=== PATIENT | male | born 1985 | race Two or more races ===

== ENCOUNTER 2017-07-20 16:30 | Emergency (ER) | payer SELFPAY ==
[2017-07-20 17:02] VITALS: BP 137/82
--- NOTE | 2017-07-20 17:24 | UC ---
Throat Pain/Nasal Jose R HPI - HPI Summary HPI Summary: Pt presents with sore throat for 3 days. He tells me that 3 days ago he developed a right sided sore throat and felt mildly feverish. Since that time his pain has been increasing and now he is having difficulty swallowing. He is able to eat soft foods and drink liquids, but with moderate to severe pain. He is able to open his mouth, but this is decreased from his usual ROM. He says he is UTD on immunizations. He has not taken anything for his pain. He had an old prescription for Cipro at home, which he took one dose of earlier today. Denies sick contacts, SOB, trouble breathing, chest pain, abdominal pain, n/v/d/c. - History of Current Complaint Chief Complaint: UCRespiratory Stated Complaint: SORE THROAT Time Seen by Provider: 07/20/17 17:24 Hx Obtained From: Patient Onset/Duration: Gradual Onset Severity: Severe Pain Intensity: 8 Pain Scale Used: 0-10 Numeric - Allergies/Home Medications Allergies/Adverse Reactions: Allergies Allergy/AdvReac Type Severity Reaction Status Date / Time No Known Allergies Allergy Verified 07/20/17 17:03 Home Medications: Home Medications Ciprofloxacin TAB* [Cipro 500 MG TAB*] 1 tab PO ONCE 07/20/17 [History Confirmed 07/20/17] PMH/Surg Hx/FS Hx/Imm Hx Previously Healthy: Yes - Surgical History Surgical History: None - Social History Alcohol Use: Occasionally Substance Use Type: None Smoking Status (MU): Light Every Day Tobacco Smoker Review of Systems Constitutional: Fever Skin: Negative Eyes: Negative ENT: Sore Throat Respiratory: Negative Cardiovascular: Negative Gastrointestinal: Negative Musculoskeletal: Negative Neurological: Negative Psychological: Negative All Other Systems Reviewed And Are Negative: Yes Physical Exam Triage Information Reviewed: Yes Appearance: No Pain Distress, Well-Nourished, Ill-Appearing Vital Signs: Initial Vital Signs Temp 99.3 F 07/20/17 17:00 Pulse 81 07/20/17 17:00 Resp 18 07/20/17 17:00 BP 137/82 07/20/17 17:00 Pulse Ox 99 07/20/17 17:00 Vital Signs Reviewed: Yes Eyes: Positive: Conjunctiva Clear. Negative: Conjunctiva Inflamed, Discharge ENT: Positive: Hearing grossly normal, Pharyngeal erythema, TMs normal, Tonsillar swelling - 3+ B/L, Tonsillar exudate, Muffled voice - Mild, Uvula midline. Negative: Nasal congestion, Nasal drainage, TM bulging, TM dull, TM red, Dental tenderness, Sinus tenderness Neck: Positive: Supple, Other: - Anterior tenderness and lympadenopathy. No distinct abscess appreciated. Respiratory: Positive: Chest non-tender, Lungs clear, Normal breath sounds, No respiratory distress, No accessory muscle use Cardiovascular: Positive: RRR, No Murmur, Pulses Normal Neurological: Positive: Alert Psychological: Positive: Age Appropriate Behavior Skin: Negative: rashes Throat Pain/Nasal Course/Dx - Course Course Of Treatment: Tonsillitis with no discernible abscess. POC strep was negative. I had a discussion with the pt - due to his increasing pain and swelling with difficulty swallowing, I strongly recommened that he go to the ED for labwork and IV antibiotics. He did not want to do this and wanted to try outpatient therapies. 1gm of ceftriaxone IM today. 40mg of solumedrol IM today. Rx for augmentin for 10 days. Pt was strongly advised to seek further care in the ED if her symptoms do not improve or if they continue to worsen. - Differential Dx/Diagnosis Provider Diagnoses: Tonsillitis Discharge - Discharge Plan Condition: Stable Disposition: HOME Prescriptions: Amoxicillin/Clavulanate TAB* [Augmentin TAB 875*] 875 mg PO BID #20 tab Patient Education Materials: Tonsillitis (ED) Referrals: No Primary Care Phys,NOPCP [Primary Care Provider] - Additional Instructions: If you develop a fever, shortness of breath, chest pain, new or worsening symptoms - please call your PCP or go to the ED. 1) If your tonsils continue to enlarge or if you develop a fever, trouble breathing, increased trouble swallowing, or increased pain - please call 911 or go to the ER immediately.
[2017-07-20] MEDS ORDERED: cefTRIAXone VIAL(*) 1,000 MG VIAL IM ONE (17:57)
[2017-07-20] MEDS ORDERED: Lidocaine 1% MPF* 2 ML VIAL INJ ONE (17:59)
[2017-07-20] MEDS ORDERED: methylPREDNISolone SOD 40 MG* 1 ML VIAL IM ONE (18:00)
== END 2017-07-20 18:25 | disposition home or self-care (01) ==
LOC: UCEAST 16:30
DX: J03.90 Acute tonsillitis, unspecified (principal); F17.210 Nicotine dependence, cigarettes, uncomplicated
CPT/HCPCS: 87651; 96372; 99212; G0463; J0696; J2920